=== PATIENT | female | born 1950 | race Caucasian/White ===

== ENCOUNTER → 2017-07-30 | Outpatient (CLI) | payer MEDICARE, OTHER ==
[~2017-07-30] VITALS: Ht 167.6 cm; Wt 101.9 kg
[~2017-07-30] MED LIST: AMBIEN 5MG TABLE5 MG PO; ANUCORT HC25 MG REC; ASPIRIN 81M81 MG/TA2 PO; CALCIUM 1200 W/1 SGL PO; CARAFATE 1GM1 G PO; CELEXA 20MG20 MG/TAB PO; CLARITIN REDITA10 MG PO; COQ10150 MG PO; FIORICET 325 MG1 TA1 PO; LAC-HYDRIN121 TP; LASIX 20MG TABL20 MG PO; LIDODERM 5% PATC1 EA TP; LIPITOR 40MG TA40 MG PO; LUNESTA3 MG PO; MAXALT5 MG PO; MICARDIS HCT 251 TAB PO; MICRO-K EXTENCA8 MEQ; MULTI VITAMINS1 TAB PO; NATURAL MAGNES200 MG PO; NATURE'S BLE1000 MCG PO; NORCO 325 MG-51 TAB PO; OMEGA-3 1000 MG1 CAP PO; PRILOSEC 20MG20 MG PO; ROBAXIN 50500 MG/TAB PO; SINGULAIR 110 MG/TAB PO; SYNTHROID 0.10.15 MG PO; TENORMIN 5050 MG/TAB PO; TYLENOL 325MG325 MG PO; ULTRAM 50MG TAB50 MG PO; ZANTAC 150MG T150 MG PO; ZOFRAN 4MG T4 MG/TAB PO; ZYRTEC-D 5 MG-11 TER; [UNRECOGNIZED DRUG - OTHER]; [UNRECOGNIZED DRUG - OTHER] PO; [UNRECOGNIZED DRUG - OTHER] TP; fioricet
[2017-07-30 13:32] VITALS: BP 134/72; PULSE 70
[2017-07-30 14:45] VITALS: BP 109/53; PULSE 55
[2017-07-30 15:00] VITALS: BP 119/58; PULSE 54
== END ==
LOC: COL.RAD 09:45
DX: E06.3 Autoimmune thyroiditis (principal); E03.9 Hypothyroidism, unspecified; R09.02 Hypoxemia; Z99.81 Dependence on supplemental oxygen
CPT/HCPCS: 25581

== ENCOUNTER 2017-08-20 05:38 | Day surgery (SDC) | payer MEDICARE, OTHER ==
[2017-08-20] VITALS (11 sets, daily range): BP systolic 103–145; BP diastolic 41–69; PULSE 71–88; TEMP 97.6–98.2
[~2017-08-20] VITALS: Ht 167.6 cm; Wt 105.5 kg
[2017-08-20] MEDS ORDERED: GAS-X ULTRA ST180 MG PO (07:12)
[2017-08-20 22:14] LABS: HEMATOCRIT 40.1 % (37.0-47.0); HEMOGLOBIN 13.4 g/dl (12.5-16.0); MEAN CELL VOLUME 93 fl (80.0-100.0); MEAN CORPUSCULAR HEMOGLOBIN 31 pg (27.0-31.0); MEAN CORPUSCULAR HGB CONC 33 g/dl (33.0-37.0); MEAN PLATELET VOLUME 10.2 fl (7.4-10.4); PLATELET COUNT 335 K/mm3 (130-400); RED BLOOD COUNT 4.32 M/mm3 (4.10-5.30); REDCELL DISTRIBUTION WIDTH-CV 13.9 % (11.5-14.5); WHITE BLOOD COUNT 14.3 K/mm3 (4.8-10.8)
[2017-08-20 22:26] LABS: CALCIUM 8.6 mg/dL (8.4-10.2); CREATININE, serum 1.14 mg/dL (0.52-1.25); POTASSIUM 4.2 mmol/L (3.4-5.0)
[2017-08-21 02:19] VITALS: BP 142/58; PULSE 70; TEMP 98.1
[2017-08-21 09:13] VITALS: BP 97/29; PULSE 75; TEMP 97.6
[2017-08-21 09:25] VITALS: BP 98/34
[2017-08-21 10:24] LABS: BASO % 0.3 % (0.0-2.0); EOS % 0.2 % (0-4.0); GRAN # 11.2 (1.4-6.5); GRAN % 74.8 % (42.2-75.2); LYMPH # 2.4 (1.2-3.4); LYMPH % 15.8 % (20.0-51.0); MEAN CELL VOLUME 94 fl (80.0-100.0); MEAN CORPUSCULAR HGB CONC 33 g/dl (33.0-37.0); MEAN PLATELET VOLUME 10.6 fl (7.4-10.4); MONO # 1.2 (0.1-0.6); MONO % 8.2 % (1.7-9.3); PLATELET COUNT 263 K/mm3 (130-400); RED BLOOD COUNT 3.45 M/mm3 (4.10-5.30); REDCELL DISTRIBUTION WIDTH-CV 14.4 % (11.5-14.5)
[2017-08-21 10:26] LABS: HEMATOCRIT 32.5 % (37.0-47.0); HEMOGLOBIN 10.6 g/dl (12.5-16.0); MEAN CORPUSCULAR HEMOGLOBIN 31 pg (27.0-31.0)
[2017-08-21 10:36] LABS: ALBUMIN 3.1 gm/dL (3.5-5.0); CREATININE, serum 0.98 mg/dL (0.52-1.25); PHOSPHOROUS 3.3 mg/dL (2.5-4.5); POTASSIUM 4.6 mmol/L (3.4-5.0)
[2017-08-21] MEDS ORDERED: NORCO 325 MG-51 TAB PO (10:53)
[2017-08-21 11:15] VITALS: BP 107/39
== END 2017-08-21 13:30 | disposition home or self-care (01) ==
LOC: SDCO 05:38 → SURG 11:50 → SDCO 08-21 13:30
PROVIDERS: Family Medicine; Surgery
DX: D34 Benign neoplasm of thyroid gland (principal); E03.8 Other specified hypothyroidism; I95.9 Hypotension, unspecified; E06.9 Thyroiditis, unspecified; D72.825 Bandemia; I10 Essential (primary) hypertension; E78.5 Hyperlipidemia, unspecified; G47.33 Obstructive sleep apnea (adult) (pediatric); G89.4 Chronic pain syndrome; K58.1 Irritable bowel syndrome with constipation; Z86.14 Personal history of Methicillin resistant Staphylococcus aureus infection; J45.909 Unspecified asthma, uncomplicated; Z85.89 Personal history of malignant neoplasm of other organs and systems; E66.9 Obesity, unspecified; K21.9 Gastro-esophageal reflux disease without esophagitis; G43.909 Migraine, unspecified, not intractable, without status migrainosus; F32.9 Major depressive disorder, single episode, unspecified; Z95.818 Presence of other cardiac implants and grafts; Z90.5 Acquired absence of kidney; Z90.710 Acquired absence of both cervix and uterus; Z90.49 Acquired absence of other specified parts of digestive tract; R51 Headache; R60.0 Localized edema
CPT/HCPCS: OP; 99222; A9284; J0690; J1100; J2405; J2704; J3010; J7030; J7120

== ENCOUNTER → 2019-10-05 | Outpatient (CLI) | payer MEDICARE, OTHER ==
[~2019-10-05] MED LIST changes: -ANUCORT HC25 MG REC; +ANUSOL-HC SUPPO25 MG RC; +CLARITIN 1010 MG/TAB PO; -COQ10150 MG PO; +DULCOLAX TAB5 MG PO; +GAS-X ULTRA ST180 MG PO; +LIPITOR 10MG10 MG PO; +METAMUCIL3.4 GM/Dos PO; +NATURAL POTASS595 MG PO; +RESTORIL 1515 MG/CAP PO; +THE MEDICINE S200 M2 PO; -ZYRTEC-D 5 MG-11 TER; +ZYRTEC-D 5 MG-11 TER PO; -[UNRECOGNIZED DRUG - OTHER] PO
== END ==
LOC: COL.RAD 09:50
DX: C73 Malignant neoplasm of thyroid gland (principal); M25.50 Pain in unspecified joint
CPT/HCPCS: A9503

== ENCOUNTER → 2021-02-28 | Outpatient (CLI) | payer MEDICARE, OTHER ==
[~2021-02-28] MED LIST changes: +SYNTHROID0.175 MG PO
== END ==
LOC: MHCPAIN 13:37
DX: M47.817 Spondylosis without myelopathy or radiculopathy, lumbosacral region (principal); M54.5 Low back pain; M53.3 Sacrococcygeal disorders, not elsewhere classified; G89.29 Other chronic pain
CPT/HCPCS: G0463

== ENCOUNTER → 2021-03-02 | Outpatient (CLI) | payer MEDICARE, OTHER | LOC: MHCPAIN 09:24 | DX: M47.817 Spondylosis without myelopathy or radiculopathy, lumbosacral region (principal); M54.16 Radiculopathy, lumbar region | CPT/HCPCS: J1100; Q9967 ==

== ENCOUNTER → 2021-03-13 | Outpatient (CLI) | payer MEDICARE, OTHER | LOC: MHCPAIN 10:38 | DX: M47.817 Spondylosis without myelopathy or radiculopathy, lumbosacral region (principal); M54.5 Low back pain; M53.3 Sacrococcygeal disorders, not elsewhere classified; G89.29 Other chronic pain | CPT/HCPCS: G0463 ==

== ENCOUNTER → 2021-04-10 | Outpatient (CLI) | payer MEDICARE, OTHER | LOC: MHCPAIN 13:22 | DX: M47.817 Spondylosis without myelopathy or radiculopathy, lumbosacral region (principal); M54.5 Low back pain ==

== ENCOUNTER → 2021-04-13 | Outpatient (CLI) | payer MEDICARE, OTHER | LOC: MHCPAIN 13:21 | DX: M47.817 Spondylosis without myelopathy or radiculopathy, lumbosacral region (principal); M54.5 Low back pain; M53.3 Sacrococcygeal disorders, not elsewhere classified ==

== ENCOUNTER → 2021-04-27 | Outpatient (CLI) | payer MEDICARE, OTHER | LOC: MHCPAIN 13:36 | DX: M47.817 Spondylosis without myelopathy or radiculopathy, lumbosacral region (principal); M54.5 Low back pain; M53.3 Sacrococcygeal disorders, not elsewhere classified | CPT/HCPCS: G0463; J1100; J2250; J3010 ==

== ENCOUNTER → 2021-08-10 | Outpatient (CLI) | payer MEDICARE, OTHER | LOC: MHCPAIN 06-05 09:54 | DX: M47.817 Spondylosis without myelopathy or radiculopathy, lumbosacral region (principal); M54.16 Radiculopathy, lumbar region; M53.3 Sacrococcygeal disorders, not elsewhere classified | CPT/HCPCS: G0463; J1100; J2250; J3010; Q9967 ==

== ENCOUNTER → 2021-08-30 | Outpatient (CLI) | payer MEDICARE, OTHER | LOC: MHCPAIN 14:27 | DX: M47.817 Spondylosis without myelopathy or radiculopathy, lumbosacral region (principal); M53.3 Sacrococcygeal disorders, not elsewhere classified; M54.16 Radiculopathy, lumbar region; G89.29 Other chronic pain | CPT/HCPCS: G0463 ==

== ENCOUNTER → 2021-09-07 | Outpatient (CLI) | payer MEDICARE, OTHER | LOC: MHCPAIN 12:15 | DX: M47.816 Spondylosis without myelopathy or radiculopathy, lumbar region (principal); M53.3 Sacrococcygeal disorders, not elsewhere classified; M54.16 Radiculopathy, lumbar region | CPT/HCPCS: J1100; Q9967 ==

== ENCOUNTER → 2021-10-25 | Outpatient (CLI) | payer MEDICARE, OTHER | LOC: MHCPAIN 12:46 | DX: M47.896 Other spondylosis, lumbar region (principal); M54.16 Radiculopathy, lumbar region; M53.3 Sacrococcygeal disorders, not elsewhere classified | CPT/HCPCS: G0463 ==

== ENCOUNTER → 2022-02-13 | Outpatient (CLI) | payer MEDICARE, OTHER | LOC: MHCPAIN 13:44 | DX: M47.817 Spondylosis without myelopathy or radiculopathy, lumbosacral region (principal); M53.3 Sacrococcygeal disorders, not elsewhere classified; M54.50 Low back pain, unspecified | CPT/HCPCS: G0463 ==

== ENCOUNTER → 2023-08-06 | Outpatient (CLI) | payer MEDICARE, OTHER | LOC: MHCPAIN 13:58 | DX: M47.813 Spondylosis without myelopathy or radiculopathy, cervicothoracic region (principal); M48.02 Spinal stenosis, cervical region; M54.2 Cervicalgia; M43.13 Spondylolisthesis, cervicothoracic region | CPT/HCPCS: G0463 ==

== ENCOUNTER → 2023-12-05 | Outpatient (CLI) | payer MEDICARE, OTHER ==
[~2023-12-05] MED LIST changes: +Iohexol 300 - 10 ML VIAL ONE; +Lidocaine PF 2% (20 MG/ML) 2 ML VIAL ONE
== END ==
LOC: MHCPAIN 13:15
DX: M54.16 Radiculopathy, lumbar region (principal); M47.816 Spondylosis without myelopathy or radiculopathy, lumbar region; M53.3 Sacrococcygeal disorders, not elsewhere classified
CPT/HCPCS: J1100; Q9967